=== PATIENT | female | born 1985 | race Caucasian/White ===

== ENCOUNTER 2019-11-02 14:30 | Outpatient (RCR) | payer OTHER, SELFPAY ==
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
--- NOTE | 2019-09-03 10:28 | PCPTNOTE ---
Patient did not show up for scheduled appointment this date.Called left message.
--- NOTE | 2019-09-14 10:54 | PCPTNOTE ---
Patient did not show up for scheduled appointment this date.Will call pt due to no show.
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
--- NOTE | 2019-10-11 13:09 | PCPTNOTE ---
Patient did not show up for scheduled appointment this date, confirmation obtained yesterday for appointment reminder.
--- NOTE | 2019-10-18 11:20 | PCPTNOTE ---
Patient called & cancelled scheduled appointment this date due to having a sick child at home with no pension fund manager.
--- NOTE | 2019-10-22 11:33 | PCPTNOTE ---
Patient called & cancelled scheduled appointment this date due to having another appointment at the same time.
--- NOTE | 2019-10-24 12:48 | PCPTNOTE ---
Patient did not show up for scheduled appointment this date.Called pt who states her handout has her therapy appt listed as 10/25/19 not 10/24/19. Rescheduled re-eval for next Tuesday.
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
--- NOTE | 2019-11-07 11:43 | PCPTNOTE ---
This treatment is being continued on visit number [id number]. Please see documentation on both accounts to view progress. Completed interventions, outcomes, and problems have been marked as Inactive to facilitate the copying of the Care plan routine for recurring accounts.
== END 2019-11-05 23:59 | disposition home or self-care (01) ==
LOC: ANHPT 14:30
DX: G89.29 Other chronic pain (principal)
CPT/HCPCS: 97014; 97110; 97140; 97162; G0283

== ENCOUNTER 2019-11-28 14:15 | Outpatient (RCR) | payer OTHER, SELFPAY ==
--- NOTE | 2019-11-07 11:42 | PCPTNOTE ---
The treatment documented on this account is a continuation of the treatment documented on visit number [id number]. Please see documentation on both accounts to view progress. The Plan of Care has been transitioned and updated within the new V#. I have addressed and agree with the discipline specific Problems, Interventions, and Goals for the current certification period. Completed interventions, outcomes, and problems have been marked as Inactive to facilitate the copying of the Care plan routine for recurring accounts.
--- NOTE | 2019-12-07 11:20 | PCPTNOTE ---
Patient did not show up for scheduled appointment this date.This was her last scheduled visit today.
--- NOTE | 2019-12-13 09:31 | PCPTNOTE ---
Admitting Provider: Attending Provider: Diamond Islas PA-C Patient:Tequila Jimenez Date of :1985 Discharge Note Patient has not returned for any further treatments since 11/28/2019, therefore she will be discharged at this time. Patient?s initial visit was on 08/07/2019 14:00 and she had a total of13 attended visits and 7 no show or cancelled visits. The goals have been partially met. She is independent with a home exercise program at this time. Thank you for referring this patient to [facility]. Please review, sign, date and return this discharge summary DEDE. I have been updated about the patient's current status and I agree with discharge from the above service at this time. Referring Physician Date
== END 2019-12-14 08:32 | disposition home or self-care (01) ==
LOC: ANHPT 14:15
DX: G89.29 Other chronic pain (principal)
CPT/HCPCS: 97110; 97140

== ENCOUNTER 2019-12-19 13:33 | Emergency (ER) | payer OTHER, SELFPAY ==
--- NOTE | ~2019-12-19 | XR_ITS ---
EXAMINATION: XR chest 1V portable EXAM DATE: 12/19/2019 14:13 INDICATION: Chest pain. TECHNIQUE: Portable AP frontal chest x-ray was obtained. Comparison is made to prior examination from 09/14/2018. FINDINGS: The lungs are clear. Moderate chronic hyperinflation. There are no pleural effusions. Card iac silhouette is prominent but magnified on this AP technique. There is no pneumothorax suspected. The bones and soft tissues are unremarkable. IMPRESSION: 1. No acute cardiopulmonary findings. 2. Hyperinflation. Reviewed, dictated and finalized at location B.
--- NOTE | ~2019-12-19 | CT_ITS ---
EXAMINATION: CTA chest PE abdomen pel EXAM DATE: 12/19/2019 14:38 INDICATION: Left-sided chest pain. Epigastric tenderness. TECHNIQUE: Spiral CTA of the chest (pulmonary arteries) was performed with 100 cc Omnipaque 350 intr avenous contrast injection. Images were acquired during the pulmonary arterial phase. Coronal maxi mum intensity projection 3D-reconstructions were created by the technologist on dedicated workstation . Axial, coronal and sagittal reformatted images were reviewed. Spiral CT of the abdomen and pelvis was then performed with the same intravenous contrast injection. Axial, coronal and sagittal reform atted images were reviewed. The dose-length product (DLP) for this examination was 715.68 mGy-cm. T he exposure was tailored according to patient size (auto mA exposure control), and iterative reconst ruction (ASIR) was used as additional dose reduction technique. Comparison is made to prior examinati on from 08/07/2008, CT abdomen pelvis exam. FINDINGS: CHEST: Pulmonary arteries are well opacified and without intraluminal filling defects. No thoracic aortic dissection. The lungs are clear. Small pericardial effusion. Tracheobronchial tree is pat ent. There is no mediastinal, hilar or axillary lymphadenopathy. There is no pneumothorax. Hear t normal in size. No evidence of coronary arterial calcification. ABDOMEN PELVIS: The liver, spleen, adrenal glands and pancreas are unremarkable. Gallbladder is unre markable. No biliary obstruction. Portal and splenic veins are patent. Kidneys enhance symmetrical ly. There is no hydronephrosis. The uterus is anteverted and morphologically normal. The bladder is unremarkable. There is no retroperitoneal or pelvic lymphadenopathy. The appendix is normal. The stomach and small bowel are unremarkable. There is expected amount of c olonic stool. No free intraperitoneal gas. The bones are unremarkable. IMPRESSION: 1. No pulmonary emboli. 2. No acute chest, abdomen or pelvis findings. Reviewed, dictated and finalized at location B.
[2019-12-19 13:50] VITALS: BP 127/79; PULSE 82; RESP 16; TEMP 37.2; O2SAT 98
--- NOTE | 2019-12-19 13:55 | ECG_ITS ---
Measurements Intervals [place] Rate: 82 P: 52 PA: 179 QRS: 77 QRSD: 84 T: 49 QT: 329 QTc: 385 Interpretive Statements SINUS RHYTHM NORMAL ECG Electronically Signed On 12-19-2019 13:56:34 CDT by Bryan Maldonado D.O.
[2019-12-19 14:04] LABS: Basophils Percent Auto 0.5 % (0.2-1.2); Eosinophils Absolute Auto 0.3 K/mm3 (0-0.3); Eosinophils Percent Auto 4.8 % (0-4.4); Hematocrit 36.1 % (37.0-47.0); Hemoglobin 12.3 g/dL (12.0-15.0); Immature Granulocyte Absolute 0.01 K/mm3 (0.00-0.031); Immature Granulocyte Percent A 0.2 % (0-0.5); Lymphocytes Absolute Auto 2.52 K/mm3 (0.9-3.2); Lymphocytes Percent Auto 41.3 % (18.3-44.2); Mean Corpuscular HGB Conc 34.1 g/dl (32-36); Mean Corpuscular Hemoglobin 32.6 pg (26-34); Mean Corpuscular Volume 95.8 fl (80-100); Mean Platelet Volume 9.9 fl (7.4-10.4); Monocytes Absolute Auto 0.6 K/mm3 (0.1-0.6); Monocytes Percent Auto 9.5 % (2.6-8.5); Neutrophils Absolute Auto 2.7 K/mm3 (1.3-6.7); Neutrophils Percent Auto 43.7 % (45.5-73.1); Platelet Count Result 287 k/mm3 (150-375); Red Blood Count 3.77 M/mm3 (4.2-5.4); Red Cell Distribution Width 12.7 % (11.5-14.5); White Blood Count 6.1 K/mm3 (4.5-10.0)
[2019-12-19 14:15] LABS: Alanine Aminotransferase 37 U/L (4-35); Albumin Level 4.5 g/dL (3.5-5.1); Alkaline Phosphatase 52 U/L (38-126); Aspartate Amino Transferase 37 U/L (14-36); Bilirubin,Total 0.2 mg/dL (0.2-1.3); Blood Urea Nitrogen 7 mg/dL (7-17); Calcium 9.2 mg/dL (8.4-10.2); Carbon Dioxide 24 mmol/L (22-30); Chloride 105 mmol/L (98-107); Estimated CRCL calculation 109 ml/min; Estimated Glomerular Filt Rate > 60; Glucose 92 mg/dL (65-105); Lipase 423 U/L (23-300); Potassium 4.2 mmol/L (3.4-5.0); Sodium 139 mmol/L (137-145)
[2019-12-19 14:16] LABS: Prothrombin Time 13.1 Seconds (11.1-14.7)
[2019-12-19 14:17] LABS: Partial Thromboplastin Time 24.1 SECONDS (22.3-36.8)
--- NOTE | 2019-12-19 14:17 | ED.ABDPAIN ---
HPI - Abdominal Pain General Chief Complaint: Chest Pain Stated Complaint: chest pain Time Seen by Provider: 12/19/19 13:36 Source: patient Mode of arrival: ambulatory Limitations: no limitations History of Present Illness HPI narrative: Patient is a 34-year-old female who presents to emergency department for evaluation squeezing intermittent chest pain for the last 3 weeks patient on arrival denying any pain just notes pressure over the heart coupled with anxiety noting history of anxiety patient denies any vomiting diarrhea similar occurrence in the past has taken her Klonopin with no improvement. Pain does not radiate Related Data Home Medications Medication Instructions Recorded Confirmed clonazepam 12/19/19 12/19/19 gabapentin 12/19/19 lamotrigine 12/19/19 levonorgestrel-ethinyl estrad tablet 12/19/19 [Ben (28)] methocarbamol mg 12/19/19 naproxen 12/19/19 propranolol 12/19/19 quetiapine 12/19/19 tizanidine mg 12/19/19 zolpidem 12/19/19 Allergies Allergy/AdvReac Type Severity Reaction Status Date / Time latex Allergy Intermediate Unknown Verified 12/19/19 14:12 adhesive tape Allergy Mild ITCHING Verified 12/19/19 14:12 Review of Systems Review of Systems: All systems reviewed & are unremarkable except as noted in HPI and below Exam Narrative: Exam Narrative: GENERAL: Well-appearing, well-nourished, and in no acute distress. HEAD: Normocephalic, atraumatic. EYES: PERRLA and EOMI. ENT: Nares clear, no rhinorrhea or epistaxis. Mucous membranes moist. CHEST: Clear to auscultation. No respiratory distress. No wheezes rales or rhonchi HEART: Regular rate and rhythm. No murmur heard. Normal peripheral pulses. ABDOMEN: Soft, nontender, nondistended EXTREMITIES: Normal range of motion. No edema. SKIN: Warm, dry, no rash. NEURO: No focal deficits. Alert and oriented x3. PSYCH: Normal mood and affect. Course Course Emergency Course: Patient in the room in no distress aware of case findings treatment plan and diagnosis agreeing to follow-up as directed or to return if symptoms worsen or concerns Vital Signs Vital signs: Vital Signs Temperature 99 F 12/19/19 13:50 Pulse Rate 82 12/19/19 13:50 Respiratory Rate 16 07/01/20 13:50 Blood Pressure 127/79 12/19/19 13:50 Pulse Oximetry 98 12/19/19 13:50 Temperature 99 F 12/19/19 13:50 Pulse Rate 82 12/19/19 13:50 Respiratory Rate 16 12/19/19 13:50 Blood Pressure 127/79 12/19/19 13:50 Pulse Oximetry 98 12/19/19 13:50 MDM - Abdominal Pain MDM Narrative Medical decision making narrative: Paitents EKGs and labs are without significant high risk changes. Cardiac risk facotrs were reviewd. Patient is felt likely to be low risk for ACS and resonable for further risk stratification testing as an outpatient. Pain was not suddne or maximal in onset without tearing or ripping. quality. No other signs or symptoms to suggest aortic dissection. A low-risk Wells criteria is noted. PE is felt to be unlikely. No pneumonia or URI symptoms were seen on evaluation today. Patient is felt to b resonable for continued evaluation as an outpatient. Lab Data Result diagrams: 12/19/19 13:56 12/19/19 13:56 Labs: Lab Results 12/19/19 12/19/19 12/19/19 Range/Units 13:56 13:56 13:56 WBC 6.1 (4.5-10.0) K/mm3 RBC 3.77 L (4.2-5.4) M/mm3 Hgb 12.3 (12.0-15.0) g/dL Hct 36.1 L (37.0-47.0) % MCV 95.8 (80-100) fl MCH 32.6 (26-34) pg MCHC 34.1 (32-36) g/dl RDW 12.7 (11.5-14.5) % Plt Count 287 (150-375) k/mm3 MPV 9.9 (7.4-10.4) fl Immature Gran % (Auto) 0.2 (0-0.5) % Neut % (Auto) 43.7 L (45.5-73.1) % Lymph % (Auto) 41.3 (18.3-44.2) % [place] % (Auto) 9.5 H (2.6-8.5) % Eos % (Auto) 4.8 H (0-4.4) % Baso % (Auto) 0.5 (0.2-1.2) % Lymph # (Auto) 2.52 (0.9-3.2) K/mm3 [place] # (Auto) 0.6 (0.1-0.6) K/mm3 Eos # (Auto) 0.3 (0-
[2019-12-19 14:26] VITALS: BP 113/72; PULSE 85; RESP 14; O2SAT 97
[2019-12-19 14:27] LABS: Troponin I < 0.012 ng/mL (0.000-0.034)
[2019-12-19 14:27] LABS: Add Urine Microscopic? NO; Appearance Urine Clear (Clear); Bacteria Urine Trace /hpf; Bilirubin Urine Negative (Negative); Blood Urine Negative (Negative); Color Urine Colorless (Yellow); Glucose Urine UA Negative (Negative); Ketones Urine Negative (Negative); Leukocyte Esterase Ur Negative LEU/UL (Negative); Nitrate Urine Negative (Negative); Protein Urine Negative (Negative); Specific Grav Ur 1.004 (1.001-1.035); Squamous Epithelial Cell Urine Occasional /hpf (Few); Urobilinogen Urine Negative mg/dL (<2.0)
--- NOTE | 2019-12-19 14:27 | PC.NURSE ---
Pt to CT scan via stretcher.
[2019-12-19 14:38] LABS: Barbiturate Screen Urine Negative (Negative); Benzodiazepines Screen Urine Negative (Negative)
[2019-12-19 14:48] LABS: Amphetamine Screen Urine Negative (Negative); Cannabinoid Screen Urine Negative (Negative); Cocaine Screen Urine Negative (Negative); Methadone Screen Urine Negative (Negative); Opiate Screen Urine Negative (Negative)
[2019-12-19 15:06] LABS: Phencyclidine Screen Urine Negative (Negative)
[2019-12-19 15:39] VITALS: BP 111/73; PULSE 79; RESP 20; O2SAT 100
[2019-12-19 16:00] VITALS: BP 111/71; PULSE 80; RESP 20; O2SAT 98
== END 2019-12-19 16:00 | disposition home or self-care (01) ==
PROVIDERS: Emergency Medicine Emergency Medical Services; Emergency Provider Emergency Medicine
DX: R07.9 Chest pain, unspecified (principal)
CPT/HCPCS: 36415; 71045; 71275; 74177; 80053; 80307; 81003; 81025; 83690; 84484; 85025; 85380; 85610; 85730; 93005; 96374; 99284; J2060; Q9967

== ENCOUNTER 2021-07-21 07:59 | Emergency (ER) | payer OTHER, SELFPAY ==
[2021-07-21] VITALS (18 sets, daily range): BP systolic 115–143; BP diastolic 76–95; PULSE 70–99; RESP 11–22; TEMP 36.8; O2SAT 96–100
--- NOTE | ~2021-07-21 | XR_ITS ---
XR chest 2V DATE: 07/21/2021 08:46 INDICATION: Chest tightness. Numbness of left side of body for 2 days. Weakness. TECHNIQUE: PA and lateral views COMPARISON: 12/19/2019 CT pulmonary scan 12/19/2019 portable AP chest 09/14/2018 2 view chest FINDINGS: Bilateral pulmonary hyperinflation. No pulmonary infiltrate or consolidation, pleural effusion or pulmonary vascular congestion or pneumo thorax. Normal heart size. No hilar or mediastinal enlargement. There is mild dextroscoliosis of the thoracic spine. The skeletal structures are otherwise unremarkab le. IMPRESSION: Bilateral pulmonary hyperinflation similar: No active disease Reviewed, dictated and finalized at location B. Y WORKER
--- NOTE | ~2021-07-21 | CT_ITS ---
EXAMINATION: CT brain wo con DATE: 07/21/2021 08:50 INDICATION: Left-sided numbness. Headache. TECHNIQUE: Computed tomography (CT) of the head was performed without intravenous contrast. The mA wa s adjusted according to patient size. Iterative reconstruction technique was employed. Exam dose: 60 5.33 mGy-cm total exam DLP. COMPARISON: July 28, 2008 MRI brain/brainstem FINDINGS: There is slight bilateral basal ganglia calcification. No intracranial mass lesion or hemorrhage or cerebrovascular accident is detected. There is no midlin e shift or mass effects. Normal ventricular size. No subdural or epidural hematoma is detected. Orbital contents are unremarkable. There is focal mild soft tissue swelling at the lateral aspect of the left maxillary sinus. The paran jeremiah sinuses and mastoid air cells otherwise are normally developed and aerated. No fracture or bone destruction of the cranial vault. IMPRESSION: No acute intracranial finding Reviewed, dictated and finalized at Location A. Reviewed, dictated and finalized at location B. FARM WORKER
--- NOTE | 2021-07-21 08:05 | ECG_ITS ---
Measurements Intervals [place] Rate: 86 P: 74 [place]: 146 QRS: 82 QRSD: 93 T: 64 QT: 356 QTc: 427 Interpretive Statements SINUS RHYTHM BASELINE ARTIFACT- I, II, III, AVR, AVL, AVF, V1-V6 NORMAL ECG Electronically Signed On 07-21-2021 9:54:54 NET DEVELOPER SOFTWARE ENGINEER C by Bryan Maldonado D.O.
--- NOTE | 2021-07-21 08:15 | ED.GENADULT ---
HPI - General Adult General Chief complaint: Chest Pain Stated complaint: chest pain Time Seen by Provider: 07/21/21 08:13 Source: patient and RN notes reviewed History of Present Illness HPI narrative: Patient is a 35 y/o female complaining of chest pain starting 2-3 days ago. She describes her chest pain as a pressure most of time and sharp sometimes. There is no alleviating or exacerbating factor. She rates her pain as 10/10 initially, but 5/10 currently. She has no SOB, cough or fever. She has some left facial, left arm and leg numbness/tingling and left neck pain. Related Data Home Medications Medication Instructions Recorded Confirmed lamotrigine 12/19/19 gabapentin 07/21/21 07/21/21 zolpidem 07/21/21 Allergies Allergy/AdvReac Type Severity Reaction Status Date / Time latex Allergy Intermediate Unknown Verified 07/21/21 08:13 adhesive tape Allergy Mild ITCHING Verified 07/21/21 08:13 Review of Systems Constitutional: Constitutional: Denies chills, Denies fever(s), Denies headache(s) and Denies weakness Eyes: Eyes: Denies blurry vision ENT: Denies headache(s) and Denies neck pain Cardiovascular: Cardiovascular: Reports chest pain and Denies dyspnea Respiratory: Respiratory: Denies cough and Denies dyspnea Gastrointestinal: Gastrointestinal: Denies abdominal pain, Denies diarrhea, Denies nausea and Denies vomiting Genitourinary: Genitourinary: Denies hematuria and Denies dysuria Musculoskeletal: Musculoskeletal: Denies back pain and Denies neck pain Neurologic: Denies headache(s), Reports numbness, Reports paresthesias and Denies weakness Exam Const: General: no acute distress and well developed Orientation/consciousness: oriented to person, oriented to place, oriented to time and patient oriented x3 HENMT: Head: normocephalic Ears: external ears normal General nose exam: Normal external nose present Eyes: General: appearance normal, both eyes and all related structures Conjunctivae: conjunctivae normal Neck: Neck: normal visual inspection and full ROM Chest: Chest palpation & inspection: normal inspection of the chest and no tenderness Resp: Effort & Inspection: normal respiratory effort Auscultation: clear to auscultation bilaterally Cardio: Rate: regular rate Rhythm: regular rhythm GI: GI Palp: No abdominal tenderness and Yes Soft to palpation Skin: General skin exam: normal color and turgor normal Neuro: General: oriented to person, oriented to place, oriented to time and patient oriented x3 Cranial nerves: Yes CN's II-XII intact bilaterally Cognition (Neuro): normal cognition Speech: normal speech Motor exam (neuro): 5/5 motor strength present throughout Sensory Exam: Sensory deficit (Neuro) (decreased sensation on left side) Coordination: [id number] test normal and [id number] test normal Extrem: General: normal to inspection, full ROM and no pedal edema Psych: Appearance: grossly normal Mental Status: mental status grossly normal Affect: normal affect Course Vital Signs Vital signs: Vital Signs Temperature 36.8 C 07/21/21 08:03 Pulse Rate 95 07/21/21 08:03 Respiratory Rate 16 07/21/21 08:03 Blood Pressure 115/89 07/21/21 08:03 Pulse Oximetry 100 07/21/21 08:03 Temperature 36.8 C 07/21/21 08:03 Pulse Rate 99 07/21/21 14:05 Respiratory Rate 22 H 07/21/21 14:05 Blood Pressure 126/95 H 07/21/21 12:31 Pulse Oximetry 100 07/21/21 14:05 Medical Decision Making Vital Signs Vital Signs: Vital Signs Temperature 36.8 C 07/21/21 08:03 Pulse Rate 95 07/21/21 08:03 Respiratory Rate 16 07/21/21 08:03 Blood Pressure 115/89 07/21/21 08:03 Pulse Oximetry 100 07/21/21 08:03 Temperature 36.8 C 07/21/21 08:03 Pulse Rate 99 07/21/21 14:05 Respiratory Rate 22 H 07/21/21 14:05 Blood Pressure 126/95 H 07/21/21 12:31 Pulse Oximetry 100 07/21/21 14:05 Lab Data Result diagrams: 07/21/21 08:26
[2021-07-21 08:45] LABS: Alanine Aminotransferase 16 U/L (4-35); Albumin Level 4.4 g/dL (3.5-5.1); Alkaline Phosphatase 54 U/L (38-126); Anion Gap 7 mmol/L (8-16); Aspartate Amino Transferase 26 U/L (14-36); Bilirubin,Total 0.4 mg/dL (0.2-1.3); Blood Urea Nitrogen 9 mg/dL (7-17); Calcium 9.1 mg/dL (8.4-10.2); Carbon Dioxide 22 mmol/L (22-30); Chloride 104 mmol/L (98-107); Estimated CRCL calculation 108 ml/min; Estimated Glomerular Filt Rate > 60; Glucose 98 mg/dL (65-110); Potassium 3.4 mmol/L (3.4-5.0); Sodium 133 mmol/L (137-145)
[2021-07-21 08:49] LABS: Basophils Percent Auto 0.5 % (0.2-1.2); Eosinophils Absolute Auto 0.2 K/mm3 (0-0.3); Eosinophils Percent Auto 3.7 % (0-4.4); Hematocrit 35.8 % (37.0-47.0); Hemoglobin 12.4 g/dL (12.0-15.0); Lymphocytes Absolute Auto 2.12 K/mm3 (0.9-3.2); Lymphocytes Percent Auto 49.2 % (18.3-44.2); Mean Corpuscular HGB Conc 34.6 g/dl (32-36); Mean Corpuscular Hemoglobin 33.4 pg (26-34); Mean Corpuscular Volume 96.5 fl (80-100); Mean Platelet Volume 9.3 fl (7.4-10.4); Monocytes Absolute Auto 0.5 K/mm3 (0.1-0.6); Monocytes Percent Auto 12.1 % (2.6-8.5); Neutrophils Absolute Auto 1.5 K/mm3 (1.3-6.7); Neutrophils Percent Auto 34.5 % (45.5-73.1); Platelet Count Result 253 k/mm3 (150-375); Red Blood Count 3.71 M/mm3 (4.2-5.4); Red Cell Distribution Width 13.3 % (11.5-14.5); White Blood Count 4.3 K/mm3 (4.5-10.0)
[2021-07-21 08:56] LABS: Troponin I < 0.012 ng/mL (0.000-0.034)
[2021-07-21 08:57] LABS: Add Urine Microscopic? YES; Appearance Urine Clear (Clear); Bilirubin Urine Negative (Negative); Blood Urine Negative (Negative); Color Urine Yellow (Yellow); Glucose Urine UA Negative (Negative); Ketones Urine Trace mg/dL (Negative); Leukocyte Esterase Ur Negative LEU/UL (Negative); Mucus Urine Rare /lpf; Nitrate Urine Negative (Negative); Protein Urine Negative (Negative); RBC Urine 0-2 /hpf (0-2); Specific Grav Ur 1.016 (1.001-1.035); Squamous Epithelial Cell Urine Few /hpf (Few); Urobilinogen Urine Negative mg/dL (<2.0); WBC Urine 0-3 /hpf
[2021-07-21 10:41] LABS: D Dimer < 0.22 ug/mL (<0.48)
[2021-07-21 12:07] LABS: Troponin I < 0.012 ng/mL (0.000-0.034)
--- NOTE | 2021-07-21 12:23 | PC.NURSE ---
RN called lab regarding urine test, new order put in. Waiting result.
[2021-07-21] MEDS: IBUPROFEN 600 MG TABLET PO (14:04)
== END 2021-07-21 14:28 | disposition home or self-care (01) ==
PROVIDERS: Emergency Provider Emergency Medicine
DX: R07.9 Chest pain, unspecified (principal); R20.2 Paresthesia of skin; F41.9 Anxiety disorder, unspecified
CPT/HCPCS: 36415; 70450; 71046; 80053; 81001; 81025; 84484; 85025; 85380; 93005; 99284; A9270

== ENCOUNTER 2021-09-21 15:52 | Emergency (ER) | payer OTHER, SELFPAY ==
--- NOTE | 2021-09-21 15:54 | ED.URI ---
HPI - URI/Sore Throat General Chief Complaint: Upper Respiratory Infection Stated Complaint: Sore Throat Time Seen by Provider: 09/21/21 15:54 Source: patient, family, RN notes reviewed and old records reviewed Mode of arrival: ambulatory Limitations: no limitations History of Present Illness HPI Narrative: 35-year-old male presents to the [facility] with complaints of a sore throat since . Has a history of allergies, wants to make sure it is not strep throat. States pain to the left side of her tongue and sore throat started 4 days ago on . Denies fevers. Has been resting all weekend but still not feeling better. MD elicited complaint: sore throat Related Data Home Medications Medication Instructions Recorded Confirmed lamotrigine 200 mg PO DAILY 12/19/19 09/21/21 gabapentin 600 mg PO TID 07/21/21 09/21/21 zolpidem 10 mg PO DAILY 07/21/21 09/21/21 acyclovir 400 mg PO BID 09/21/21 09/21/21 Allergies Allergy/AdvReac Type Severity Reaction Status Date / Time latex Allergy Intermediate Unknown Verified 09/21/21 16:12 adhesive tape Allergy Mild ITCHING Verified 09/21/21 16:12 Review of Systems Review of Systems: All systems reviewed & are unremarkable except as noted in HPI and below Constitutional: Constitutional: Reports no additional constitutional complaints, Denies chills, Denies fever(s) and Denies headache(s) Eyes: Eyes: Reports no additional eye complaints ENT: Reports as per HPI, Denies vertigo, Denies dizziness, Denies headache(s), Denies nasal congestion and Reports sore throat Comments: Sore to the tissue between the tongue and posterior molars Cardiovascular: Cardiovascular: Reports no additional cardiovascular complaints, Denies chest pain, Denies syncope, Denies rapid heart rate and Denies dyspnea Respiratory: Respiratory: Reports no additional respiratory complaints, Denies cough, Denies dyspnea and Denies wheezing Gastrointestinal: Gastrointestinal: Reports no additional gastrointestinal complaints, Denies abdominal pain, Denies diarrhea, Denies nausea and Denies vomiting Musculoskeletal: Musculoskeletal: Reports no additional musculoskeletal complaints and Denies numbness Integumentary/Breasts: Skin/Breast: Reports system reviewed and no additional complaints, except as docu Neurologic: Reports system reviewed and no additional complaints, except as documented, Denies vertigo, Denies dizziness, Denies syncope, Denies headache(s), Denies focal weakness and Denies numbness Psychiatric: Psychiatric: Reports no additional psychiatric complaints Allergic/Immunologic: Allergic/Immunologic: Reports no additional allergic/immunologic complaints and Denies wheezing PMFSH Past Medical History Medical History (Updated 09/21/21 @ 18:33 by Mindy Santo APRN) Anxiety Chest pain Comments At the time of my signature, I reviewed and agree with the nursing past medical, surgical, social, and family history. There is no relevant family history pertinent to the patient complaint. Exam Const: General: cooperative, healthy appearing, no acute distress, well developed and alert Nutritional Appearance: well nourished Orientation/consciousness: patient oriented x3 Limitations: no limitations HENMT: Head: normal to inspection Ears: external ears normal, EAC's normal and TM abnormal bulging on the left and with fluid behind the TM bilateral; not erythematous and with no loss of landmarks Teeth image: 1. Small white ulceration less than half centimeter with surrounding tissue erythema Throat: posterior oropharynx normal, tonsils normal, uvula midline and no uvular edema Eyes: Conjunctivae: conjunctivae normal Pupils: Equal, round and reactive pupils present Neck: Neck: normal visual inspection, no lymphadenopathy and no meningeal signs Chest: Chest palpation & inspection: normal inspection of the chest Resp: Effort & Inspection: normal respiratory effort and no use of accessory muscles
[2021-09-21 16:02] VITALS: BP 98/64; PULSE 109; RESP 16; TEMP 37.2; O2SAT 99
== END 2021-09-21 16:27 | disposition home or self-care (01) ==
PROVIDERS: Emergency Provider Nurse Practitioner
DX: H65.03 Acute serous otitis media, bilateral (principal)
CPT/HCPCS: 87081; 87880; 99213; G0463